=== PATIENT | female | born 1975 | race Two or more races ===

== ENCOUNTER 2025-06-09 04:20 | Emergency (ER) | payer OTHER ==
[~2025-06-09] VITALS: Ht 162.6 cm; Wt 55.8 kg
[2025-06-09] MEDS: HYDROcodone/acetaminophen 10/325mg tab PO ONE (04:48)
[2025-06-09 06:27] VITALS: TEMP 98.6
--- NOTE | 2025-06-09 06:58 | Physician Documentation ---
History of Present Illness General Chief Complaint: Neck pain Stated Complaint: NECK PAIN Time Seen by MD: 06:53 Mode of Arrival: POV History of Present Illness Initial Comments The patient is a 49-year-old female with no significant past medical history who presents with neck pain on the left side radiating into her left shoulder. She is visiting here from [place], on vacation in two nights ago she slept in her car. She thinks her neck might have been positioned wrong. She has had the neck pain since then. She has not tried taking any medications. She has no fever or other constitutional symptoms. She has no upper extremity weakness or long tract signs. Medication Reconciliation Allergies: Coded Allergies: No Known Allergies (Unverified , 06/09/25) Review of Systems ROS Constitutional: Denies chills, fatigue, fever, weight gain or weight loss. HEENT: Denies hearing loss, sinus pressure or visual changes. Respiratory: Denies cough, shortness of breath or wheezing. Cardiovascular: Denies chest pain, pain while walking (claudication), edema or palpitations. Gastrointestinal: Denies abdominal pain, blood in stool, constipation, diarrhea, heartburn, loss of appetite, nausea or vomiting. Genitourinary: Denies painful urination (dysuria), excessive amount of urine (polyuria) or urinary frequency. Metabolic/Endocrine: Denies cold intolerance, heat intolerance, excessive thirst (polydipsia) or excessive hunger (polyphagia). Neurological: Denies dizziness, extremity numbness, extremity weakness, headaches, seizures or tremors. Psychiatric: Denies anxiety or depression. Integumentary: Denies breast discharge, breast lump, hives, mole change(s), rash or skin lesion. Musculoskeletal: Neck pain Hematologic: Denies easily bleeding, easily bruises, lymphedema or issues with blood clots. Immunologic: Denies food allergies or seasonal allergies. Physical Exam Physical Exam Vital Signs: Temperature: 98.6, Source: Oral, Heart Rate: 86, Respiratory Rate: 16, BP: 181/130, Pulse Oximetry: 94, Weight: 55.800 Oxygen Flow Rate: 2.0 Physical Exam Physical Exam Vitals and nursing note reviewed. Constitutional: General: Patient is awake, alert, oriented x 4 in no acute distress and well appearing. Speech is clear and lucid. Appearance: Normal appearance. Patient is not ill-appearing, toxic-appearing or diaphoretic. HENT: Head: Normocephalic and atraumatic. Mouth/Throat: Mouth: Mucous membranes are moist. Pharynx: Oropharynx is clear. Eyes: General: No scleral icterus. Extraocular Movements: Extraocular movements intact. Pupils: Pupils are equal, round, and reactive to light. Neck: Supple, no Kernig or Brudzinski sign. (Full range of motion.) Cardiovascular: Rate and Rhythm: Normal rate and regular rhythm. Heart sounds: No murmur heard. Pulmonary: Effort: No respiratory distress. Breath sounds: No wheezing, rhonchi or rales. Abdominal: General: There is no distension. Palpations: There is no fluid wave, hepatomegaly or mass. Tenderness: There is no abdominal tenderness. There is no guarding. Musculoskeletal: General: No swelling or deformity. Skin: Coloration: Skin is not jaundiced. Findings: No erythema or rash. Neurological: Mental Status: Patient is alert. Normal motor strength in both upper extremities. Progress Results/Orders Results/Orders Medications Received in ER Medications (Trade) Dose Ordered Sig/Yasmany Route PRN Reason Start Time Stop Time Status Last Admin Dose Admin ([place] 10/325mg tab) 1 tab ONCE ONCE PO 06/09/25 04:35 06/09/25 04:36 DC 06/09/25 04:48 1 TAB Vital Signs 06/09/25 06/09/25 06/09/25 06/09/25 04:21 04:36 04:41 06:27 Temp 98.6 98.6 Pulse 88 88 86 Resp 16 19 17 16 B/P (MAP) 196/142 214/160 (178) 181/130 (147) Pulse Ox 98 93 94 O2 Flow Rate 0 2.0 Medical Decision Making Findings This 49-year-old female presents with neck pain after sleeping in her car two nights ago. I am going to give her some Toradol here. I am sending a prescription for ibuprofen and Flexeril. This appears to be musculoskeletal in nature. There is no evidence of infection. Departure Disposition: HOME / SELF CARE / HOMELESS Impression: Primary Impression: Neck pain Additional Impression: Strain of neck muscle Condition: Stable Additional Instructions: Please alternate ice and heat. Take the medications as directed. Follow-up with your PCP, as needed. Referrals: NO PRIMARY CARE PROVIDER (PCP) Prescriptions Cyclobenzaprine* (Cyclobenzaprine*) 10 Mg Tablet 1 TAB PO Q8H for muscle spasms for 10 Days, #30 TAB 0 Refills Prov: MUNA RAMIREZ MD 06/09/25 Ibuprofen (Ibuprofen) 600 Mg Tablet 1 TAB PO Q6H PRN for pain, #30 TABLET Prov: MUNA RAMIREZ MD 06/09/25 Education Educated: Patient Educated regarding: diagnosis, treatment, prognosis Signature Scribe Signature: . Attestation: . MUNA RAMIREZ MD Jun 09, 2025 06:58
[2025-06-09] MEDS ORDERED: IBUP-1985 PO (06:59)
[2025-06-09] MEDS ORDERED: CYCL-1 PO (06:59)
[2025-06-09] MEDS: ketorolac trometh 30MG/ML vial 30 MG/ML VIAL IM ONE (07:07)
[2025-06-09 07:15] VITALS: BP 176/90; PULSE 86; RESP 16; O2SAT 94
== END 2025-06-09 07:17 | disposition home or self-care (01) ==
LOC: ER 04:21
DX: S16.1XXA Strain of muscle, fascia and tendon at neck level, initial encounter (principal); X58.XXXA Exposure to other specified factors, initial encounter; Y93.89 Activity, other specified; Y92.89 Other specified places as the place of occurrence of the external cause; Y99.8 Other external cause status
CPT/HCPCS: 96372; 99285; J1885; A4615